=== PATIENT | female | born 1960 | race Hispanic/Latino ===

== ENCOUNTER → 2024-10-19 | Day surgery (SDC) | payer OTHER ==
[2024-10-16 10:11] LABS: BASOPHILS % 0.8 % (0.0-1.0); EOSINOPHILS % 1.7 % (0.0-6.0); LYMPHOCYTES % 31.1 % (18.0-39.1); MONOCYTES % 9.4 % (4.4-11.3); NEUTROPHILS % 56.7 % (38.7-80.0); RED CELL DISTRIBUTION WIDTH 14.2 % (11.7-14.4)
[2024-10-16 10:45] LABS: INR 0.84
[2024-10-16 10:51] LABS: EST GLOMERULAR FILTRATION RATE 85.0 ML/MIN (>=60)
[2024-10-19] VITALS (10 sets, daily range): BP systolic 112–135; BP diastolic 57–70; PULSE 46–59; RESP 11–19; TEMP 97.2; O2SAT 98–100
[~2024-10-19] VITALS: Ht 157.5 cm; Wt 75.7 kg
[~2024-10-19] MED LIST: ASPIRIN EC81 MG PO; ATORVASTATIN CA20 MG PO; ATROPINE SULFATE 0.1 MG/ML 10ML SYR ONE; FENTANYL CITRATE/PF 100MCG/2 ML INJ ONE; HEPARIN SOD (PORCINE) 1000 UNIT/ML 30ML ONE; HEPARIN SOD/SOD CHLORIDE 2,000 ML ONE; IOPAMIDOL 370 MG/ML 100 ML INFUS..BTL INJ ONE; LIDOCAINE HCL 2% LOCAL 20 ML VIAL ONE; LOSARTAN POTASS25 MG PO; METOPROLOL SUCC25 MG PO; MIDAZOLAM HCL 2 MG/2 ML VIAL ONE; NITROGLYCERIN/D5W 200 MCG/ML 250 ML ONE; PROTAMINE SULFATE 10 MG/ML 25 ML VIAL ONE; SODIUM CHLORIDE 0.9% 1000ML 1,000 ML ONE; VERAPAMIL HCL 2.5 MG/ML 2 ML VIAL ONE
== END | disposition home or self-care (01) ==
LOC: CATH LAB 05:38
PROVIDERS: ATTEND Surgery Vascular Surgery
DX: I70.212 Atherosclerosis of native arteries of extremities with intermittent claudication, left leg (principal); I10 Essential (primary) hypertension; E78.5 Hyperlipidemia, unspecified; F17.210 Nicotine dependence, cigarettes, uncomplicated; Z01.812 Encounter for preprocedural laboratory examination; Z79.899 Other long term (current) drug therapy; Z79.82 Long term (current) use of aspirin
CPT/HCPCS: 36415; 37221; 76937; 80053; 83880; 85025; 85610; C1725; C1760; C1769 ×2; C1874; C1894; J1644; J2003; J2250; J3010; J7030; Q9967; 37220; 75630; 99152; 99153